=== PATIENT | male | born 1970 | race Caucasian/White ===

== ENCOUNTER 2020-08-18 07:46 | Outpatient (REF) | payer OTHER, SELFPAY ==
[2020-08-18 08:23] LABS: MANUAL DIFF FLAG NO
[2020-08-18 08:31] LABS: Basophils Percent Auto 0.4 % (0-2); Eosinophils Absolute Auto 0.3 X10*3/uL (0.0-0.4); Eosinophils Percent Auto 3.3 % (0-4); Hematocrit 38.5 % (42-52); Hemoglobin 12.7 g/dl (14.0-18.0); Imm Gran Abs Auto 0.04 X10*3/uL (0.00-0.03); Imm Gran Pct Auto 0.5 % (0.0-0.4); Lymphocytes Absolute Auto 1.4 X10*3/uL (1.2-4.9); Lymphocytes Percent Auto 17.9 % (20-40); Mean Corpuscular Hemoglobin 30.1 pg (27.0-33.0); Mean Corpuscular Volume 91.2 fL (80-98); Mean Platelet Volume 10.1 fL (9.4-12.4); Monocytes Absolute Auto 0.6 X10*3/uL (0.1-1.2); Monocytes Percent Auto 7.4 % (2-11); Neutrophils Absolute Auto 5.6 X10*3/uL (2.0-8.3); Neutrophils Percent Auto 70.5 % (45-73); Platelet Count 236 X10*3/uL (160-400); Red Blood Count 4.22 X10*6/uL (4.60-5.80); Red Cell Distribution Width 13.9 % (11.0-16.0)
[2020-08-18 08:57] LABS: Alanine Aminotransferase 27 U/L (0-40); Albumin Level 4.4 g/dL (3.5-5.0); Alkaline Phosphatase 74 U/L (39-117); Anion Gap 13 (12-20); Aspartate Amino Transferase 19 U/L (5-37); Bilirubin Total 0.3 mg/dL (0.0-1.0); Blood Urea Nitrogen 8 mg/dL (9-16); Calcium 9.5 mg/dL (8.4-10.2); Carbon Dioxide 27 mmol/L (22-29); Chloride 106 mmol/L (96-108); Cholesterol 157 mg/dL; Estimated Glomerular Filt Rate > 60; Glucose Fasting 113 mg/dL (60-99); HDL Cholesterol 54 mg/dL; LDL Cholesterol Calculated 93 mg/dl; Potassium 4.8 mmol/L (3.3-5.1); Sodium 141 mmol/L (135-145); Total Protein 7.3 g/dL (6.5-8.0); Triglycerides 52 mg/dL
[2020-08-19 07:59] LABS: Syphilis Screen Nonreactive (Nonreactive)
== END 2020-08-18 07:47 | disposition home or self-care (01) ==
LOC: HO.LAB 07:46
PROVIDERS: PCP Internal Medicine; Visit Provider Internal Medicine
DX: Z00.00 Encounter for general adult medical examination without abnormal findings (principal); E78.5 Hyperlipidemia, unspecified
CPT/HCPCS: 36415; 80053; 80061; 85025; 86780

== ENCOUNTER → 2021-05-27 14:46 | Outpatient (BNVA) | payer OTHER, SELFPAY | PROVIDERS: PCP Internal Medicine; Referring Provider Internal Medicine; Visit Provider Surgery ==

== ENCOUNTER 2021-08-06 10:26 | Day surgery (SDC) | payer OTHER, SELFPAY ==
[2021-07-28 13:02] VITALS: BMI 26.5
--- NOTE | 2021-08-05 08:39 | HO.ANESPROP2 ---
Documented by User: Cara Ferrer NP 08/05/21 08:41 HPI - Anesthesia Eval Consult details Narrative: 50yo M for Left Hernia Repair Inguinal with Mesh +ETOH (>6 beers daily) PMFSH Active Problems Active Problems: All Active Problems (Updated 07/28/21 @ 13:01 by Kristen Chun RN) Left inguinal hernia (Acute) Depression (Acute) Hypertension (Acute) Past Medical History Medical History (Updated 07/28/21 @ 13:01 by Kristen Chun RN) COVID-19 vaccine series completed Depression Excessive consumption of ethanol Family history of colon cancer Headache History of COVID-19 Hypertension Left inguinal hernia Surgical History Surgical History (Updated 07/28/21 @ 13:01 by Kristen Chun RN) H/O colonoscopy Hx of nasal septoplasty Social History Social History Are you a primary animal care worker to a significant other at home: No Do you presently have visiting nurse or other home services: No Patient Tobacco Use Status: Former Tobacco user Quit Date: age 32 Tobacco use type: Cigarette Use of substances other than those prescribed or required for medical reasons: Yes Substance Use Type Other:: advised to hold pre-op Substance Use Frequency: Daily Have you been hit, kicked, punched, or otherwise hurt by someone within the past year? If so, by whom?: No Are you DNR?: No Advance Directives: No Advance Directives Information Provided: Yes (brochure mailed) Advance Directives on File: No Eating poorly because of decreased appetite: No Nutrition Risks: No Nutritional Risk Poor oral hygiene: Yes (broken tooth upper Rt back/implant post upper front-no crown) Meds Allergies Allergy/AdvReac Type Severity Reaction Status Date / Time No Known Allergies Allergy Verified 08/06/21 10:46 Home Medications Medication Instructions Recorded Confirmed Last Taken Type atorvastatin 20 mg tablet 20 mg PO DAILY 05/27/21 07/28/21 Unknown History bupropion HCl 150 mg tablet,12 hr 150 mg PO DAILY 05/27/21 07/28/21 Unknown History sustained-release cyanocobalamin (vitamin B-12) 1,000 mcg IM 05/27/21 05/27/21 Unknown History 1,000 mcg/mL injection solution lamotrigine 25 mg tablet 25 mg PO DAILY 05/27/21 07/28/21 08/06/21 History metoprolol tartrate 25 mg tablet 25 mg PO BID 05/27/21 07/28/21 08/06/21 History omeprazole 20 mg capsule,delayed 20 mg PO DAILY 05/27/21 07/28/21 08/06/21 History release Exam Exam Date and Time: August 05, 2021 0839 Height,Weight and Vital Signs: Height 5 ft 10 in Weight 83.915 kg Assessment and Plan Assessment Anesthesia Assessment: Chart Reviewed Documented by User: Leesa Briones MD 08/06/21 12:12 [facility] Past Medical History Medical History (Updated 07/28/21 @ 13:01 by Kristen Chun RN) COVID-19 vaccine series completed Depression Excessive consumption of ethanol Family history of colon cancer Headache History of COVID-19 Hypertension Left inguinal hernia Family History Family history of problems with anesthesia: No Surgical History Surgical History (Updated 07/28/21 @ 13:01 by Kristen Chun RN) H/O colonoscopy Hx of nasal septoplasty History of Problems with Anesthesia: No Social History Social History Are you a primary animal care worker to a significant other at home: No Do you presently have visiting nurse or other home services: No Patient Tobacco Use Status: Former Tobacco user Quit Date: age 32 Tobacco use type: Cigarette Use of substances other than those prescribed or required for medical reasons: Yes Substance Use Type Other:: advised to hold pre-op Substance Use Frequency: Daily Have you been hit, kicked, punched, or otherwise hurt by someone within the past year? If so, by whom?: No Are you DNR?: No Advance Directives: No Advance Directives Information Provided: Yes (brochure mailed) Advance Directives on File: No Eating poorly because of decreased appetite: No Nutrition Risks: No Nutritional Risk Poor oral hygiene: Yes (broken tooth upper Rt back/implant post upper front-no crown) Meds Allergies Allergy/AdvReac Type Severity Reaction Status Date / Time No Known Allergies Allergy Verified 08/06/21 10:46 Home Medications Medication Instructions Recorded Confirmed Last Taken Type atorvastatin 20 mg tablet 20 mg PO DAILY 05/27/21 07/28/21 Unknown History bupropion HCl 150 mg tablet,12 hr 150 mg PO DAILY 05/27/21 07/28/21 Unknown History sustained-release cyanocobalamin (vitamin B-12) 1,000 mcg IM 05/27/21 05/27/21 Unknown History 1,000 mcg/mL injection solution lamotrigine 25 mg tablet 25 mg PO DAILY 05/27/21 07/28/21 08/06/21 History metoprolol tartrate 25 mg tablet 25 mg PO BID 05/27/21 07/28/21 08/06/21 History omeprazole 20 mg capsule,delayed 20 mg PO DAILY 05/27/21 07/28/21 08/06/21 History release Exam Airway Mallampati Class: I TM Dist: >3cm Neck ROM: Full Assessment and Plan Assessment Anesthesia Assessment: Anesthesia Plan Discussed and Chart Reviewed Final Anesthetic Review Family History of Problems with Anesthesia: No History of Problems with Anesthesia: No ASA Class: II Final Preanesthetic Review: No Changes in Pt Med Stat, Meds/Allgs Chart Reviewed, Consent Obtained/Reviewed and Anes Risks/Benef Reviewed Patient Risk: Intermediate Procedure Risk: Low Anesthetic Plan Anesthetic Plan: GA Disposition: Standard PACU
[2021-08-06] VITALS (9 sets, daily range): BP systolic 121–140; BP diastolic 65–92; PULSE 54–66; RESP 12–18; TEMP 36.6–37.2; O2SAT 96–99
[2021-08-06] MEDS: Lactated Ringers 1,000 ML 100 ML IVCONT (12:00)
--- NOTE | 2021-08-06 13:21 | P.OP_ITS ---
Operative Note Operative Note Date of Service: 08/06/21 Narrative: Preop diagnosis: Left inguinal hernia Postop diagnosis: Left inguinal hernia, direct Procedure: Repair of a left inguinal hernia with mesh Surgeon: Nilesh Reynolds MD chiropractic assistant: SHEYLA Stack The patient is a 50-year-old male with a reducible mass on the left groin also palpable with Valsalva. This was consistent with a left inguinal hernia. He understood the technique of repair with mesh. He was aware of the risks, benefits, and alternatives He was brought to the operating room. He was placed supine on the table under general anesthesia via laryngeal mask airway. The left groin was prepped and draped in the usual sterile fashion. A surgical time-out was done. The patient received cefazolin 2 g IV preoperatively . I infiltrated the planned line of incision with lidocaine 1%. I made a short incision on the skin along an imaginary line from the anterior superior iliac spine to the pubic ramus using a blade 15. This was carried down through the full-thickness of the skin and subcutaneous fat until was able to visualize the external oblique aponeurosis. I bluntly dissected the aponeurosis to define the external ring. I made an incision on the aponeurosis the external ring superior laterally to unroof the canal. Hemostats were applied on the edges of the divided aponeurosis. I bluntly dissected the underside of the aponeurosis to create a pocket for the mesh. I then proceeded to bluntly dissect the spermatic cord and its contents with an index finger until was able to pass a Shawn drain around this. The Redrock drain was used for traction The vas deferens and the accompanying vessels were clearly seen. The hernia sac was noted to be on the floor of the canal. This was therefore a direct hernia. This was completely from the rest of the cord contents. I reinforced the defect on the floor with a medium-sized plug. The plug was secured with Prolene 2 sutures to the shelving edge of the inguinal and laterally, inferior oblique medially and superiorly using the inner leaves of the mesh. I then proceeded to reinforce the rest of the floor of the canal with a keyhole mesh. The tails of the mesh were passed around the cord at the level of the internal ring and were secured together with Prolene 2 sutures The keyhole mesh was then secured to the against of the inguinal and laterally and the internal oblique superiorly as well as medially and the pubic ramus inferomedially with Prolene 2 sutures. We observed for hemostasis. He once hemostasis ensured, I removed the Shawn drain. I proceeded to then reapposed the divided edges of the external oblique aponeurosis to re-create the external ring. The subcutaneous layer was reapposed with Dexon 3-0 interrupted sutures. Skin closure was achieved with Dexon 4-0 subcuticular running stitch. Steri- Strips dressings were applied And dressings were placed. The incision was infiltrated with Marcaine 0.5% for postop analgesia. The procedure was then completed. The patient tolerated procedure well. There were no complications noted. Initial and final counts of sponges and instruments were correct. Estimated blood loss was about 5 cc. The was extubated without difficulty and transferred to the recovery room with stable vital signs.
[2021-08-06] MEDS: fentaNYL citrate/PF 100 MCG/2 ML VIAL 50 MCG IVPUSH ×3 (13:45→14:05)
[2021-08-06] MEDS: oxyCODONE HCl Immed Release 5 MG TABLET PO (13:49)
== END 2021-08-06 15:33 | disposition home or self-care (01) ==
PROVIDERS: PCP Internal Medicine; Visit Provider Surgery
PROC: (CPT 49505; principal; 2021-08-06 12:40)
DX: K40.90 Unilateral inguinal hernia, without obstruction or gangrene, not specified as recurrent (principal); I10 Essential (primary) hypertension; F32.9 Major depressive disorder, single episode, unspecified; Z79.899 Other long term (current) drug therapy; Z79.52 Long term (current) use of systemic steroids; Z80.0 Family history of malignant neoplasm of digestive organs; Z86.16 Personal history of COVID-19; Z87.891 Personal history of nicotine dependence
CPT/HCPCS: 49505; C1781; J0690; J1100; J2250; J2405; J3010

== ENCOUNTER → 2021-08-18 10:32 | Outpatient (BNVA) | payer OTHER, SELFPAY | PROVIDERS: PCP Internal Medicine; Visit Provider Surgery ==

== ENCOUNTER 2022-11-29 10:30 | Day surgery (SDC) | payer OTHER, SELFPAY ==
--- NOTE | 2022-11-28 12:12 | P.CONAN_ITS ---
HPI - Anesthesia Eval Consult details Narrative: 52yo M for Colonoscopy ETOH daily: >6 beers daily per PMHx PMFSH Active Problems Active Problems: All Active Problems (Updated 07/28/21 @ 13:01 by Kristen Chun RN) Left inguinal hernia (Acute) Depression (Acute) Hypertension (Acute) Past Medical History Medical History COVID-19 vaccine series completed Depression Excessive consumption of ethanol Family history of colon cancer Headache History of COVID-19 Hypertension Left inguinal hernia Family History Family history of problems with anesthesia: No Surgical History Surgical History H/O colonoscopy History of left inguinal hernia repair (~08/06/21) Hx of nasal septoplasty History of Problems with Anesthesia: No Social History Social History Are you a primary hemodialysis patient care specialist to a significant other at home: No Do you presently have visiting nurse or other home services: No Patient Tobacco Use Status: Former Tobacco user Quit Date: age 32 Tobacco use type: Cigarette Meds Allergies Allergy/AdvReac Type Severity Reaction Status Date / Time No Known Allergies Allergy Verified 08/18/21 10:33 Home Medications Medication Instructions Recorded Confirmed Last Taken Type atorvastatin 20 mg tablet 20 mg PO DAILY 05/27/21 07/28/21 Unknown History bupropion HCl 150 mg tablet,12 hr 150 mg PO DAILY 05/27/21 07/28/21 Unknown History sustained-release cyanocobalamin (vitamin B-12) 1,000 mcg IM 05/27/21 05/27/21 Unknown History 1,000 mcg/mL injection solution lamotrigine 25 mg tablet 25 mg PO DAILY 05/27/21 07/28/21 08/06/21 History metoprolol tartrate 25 mg tablet 25 mg PO BID 05/27/21 07/28/21 08/06/21 History omeprazole 20 mg capsule,delayed 20 mg PO DAILY 05/27/21 07/28/21 08/06/21 History release Exam Exam Date and Time: November 28, 2022 121 Assessment and Plan Assessment Anesthesia Assessment: Chart Reviewed Final Anesthetic Review Family History of Problems with Anesthesia: No History of Problems with Anesthesia: No
[2022-11-29 11:34] VITALS: BP 154/93; PULSE 53; RESP 18; TEMP 36.2; O2SAT 99; BMI 26.2
[2022-11-29] MEDS: Lactated Ringers 1,000 ML 100 ML IVCONT (11:52)
--- NOTE | 2022-11-29 12:16 | MHC.SHP ---
Pre-Procedural Eval Section A Date of Service: 11/29/22 The patient is an INPATIENT: No Changes since office visit: No Cold of Flu in the past 2 weeks, No New Medical Problems, No Changes in Medication and No Patient answered all questions The History & Physical has been completed within 30 days and I have reviewed it.: Yes Section B Chief Complaint: screening Allergies: Allergies Allergy/AdvReac Type Severity Reaction Status Date / Time No Known Allergies Allergy Verified 08/18/21 10:33 Plan I have reviewed the history and physical and performed a pertinent physical examination on my patient. No changes have occurred unless specified. Time Spent With Patient Time: Total time managing care of this patient today ____ minutes.
--- NOTE | 2022-11-29 12:31 | P.CONAN_ITS ---
[facility] Active Problems Active Problems: All Active Problems (Updated 07/28/21 @ 13:01 by Kristen Chun RN) Left inguinal hernia (Acute) Depression (Acute) Hypertension (Acute) Past Medical History Medical History COVID-19 vaccine series completed Depression Excessive consumption of ethanol Family history of colon cancer Headache History of COVID-19 Hypertension Left inguinal hernia Family History Family history of problems with anesthesia: No Surgical History Surgical History H/O colonoscopy History of left inguinal hernia repair (~08/06/21) Hx of nasal septoplasty History of Problems with Anesthesia: No Social History Social History Are you a primary home health aide caregiver to a significant other at home: No Do you presently have visiting nurse or other home services: No Patient Tobacco Use Status: Former Tobacco user Quit Date: 20 years Tobacco use type: Cigarette Use of substances other than those prescribed or required for medical reasons: Yes Are you DNR?: No Advance Directives: No Advance Directives Information Provided: Yes Meds Allergies Allergy/AdvReac Type Severity Reaction Status Date / Time No Known Allergies Allergy Verified 08/18/21 10:33 Active Medications: Current Medications Lactated Ringer's (Lr) 1,000 mls @ 100 mls/hr IVCONT .Q10H CORRINA Last Admin: 11/29/22 11:52 Dose: 100 mls/hr Home Medications Medication Instructions Recorded Confirmed Last Taken Type atorvastatin 20 mg tablet 20 mg PO DAILY 05/27/21 11/29/22 Unknown History bupropion HCl 150 mg tablet,12 hr 150 mg PO DAILY 05/27/21 11/29/22 Unknown History sustained-release cyanocobalamin (vitamin B-12) 1,000 mcg IM Q30D 05/27/21 05/27/21 11/22/22 History 1,000 mcg/mL injection solution lamotrigine 25 mg tablet 25 mg PO DAILY 05/27/21 11/29/22 08/06/21 History metoprolol tartrate 25 mg tablet 25 mg PO BID 05/27/21 11/29/22 11/29/22 History omeprazole 20 mg capsule,delayed 20 mg PO DAILY 05/27/21 11/29/22 08/06/21 History release Exam Exam Date and Time: November 29, 2022 1231 Height,Weight and Vital Signs: Height 5 ft 10.5 in Weight 83.915 kg Last Vital Signs Temp 97.1 F 11/29/22 11:34 Pulse 53 11/29/22 11:34 Resp 18 11/29/22 11:34 BP 154/93 H 11/29/22 11:34 Pulse Ox 99 11/29/22 11:34 O2 Del Method Room Air 11/29/22 11:34 Airway Mallampati Class: II TM Dist: >3cm Neck ROM: Full Heart: RRR Lungs: CTA Assessment and Plan Final Anesthetic Review Family History of Problems with Anesthesia: No History of Problems with Anesthesia: No ASA Class: II Final Preanesthetic Review: Meds/Allgs Chart Reviewed, Consent Obtained/Reviewed and Anes Risks/Benef Reviewed Patient Risk: Low Procedure Risk: Low Anesthetic Plan Anesthetic Plan: MAC: Disposition: Standard PACU
--- NOTE | 2022-11-29 12:48 | P.BOP_ITS ---
Brief Operative Note Date of Service: 11/29/22 Pre-op diagnosis: screening Post-op diagnosis: same Procedure: colonoscopy Surgeon: Adalberto Vides Anesthesia: MAC Was an Returned Goods Repairer used for this Procedure?: No Estimated blood loss (mL): 5 Pathology: other Condition: stable Disposition: PACU
[2022-11-29 12:52] VITALS: BP 120/75; PULSE 62; RESP 16; TEMP 36.1; O2SAT 99
[2022-11-29 13:07] VITALS: BP 127/96; PULSE 59; RESP 16; TEMP 36.1; O2SAT 99
--- NOTE | 2022-11-29 13:11 | OP_ITS ---
DATE OF SERVICE: 10/29/2022 SURGEON: Adalberto Vides MD INDICATIONS: Colon cancer screening. PREOPERATIVE DIAGNOSIS: POSTOPERATIVE DIAGNOSIS: PROCEDURE PERFORMED: Colonoscopy to the terminal ileum with biopsy. ESTIMATED BLOOD LOSS: COMPLICATIONS: ANESTHESIA: Monitored anesthesia care. ASSISTANTS: SPECIMENS: DESCRIPTION OF PROCEDURE: A history and physical was performed. The risks and benefits of the procedure were explained to the patient. Informed consent was obtained. The patient was placed in the left lateral decubitus position. A digital rectal exam was performed and was found to be normal. The Olympus pediatric video colonoscope was introduced into the rectum and advanced to the cecum. The cecum was identified by transillumination, palpation, and identification of ileocecal valve. Examination was performed. The scope was removed. He tolerated the procedure well and was returned to the recovery area in stable condition. FINDINGS: The terminal ileum was normal. The visualized colonic mucosa was normal. The quality of the prep was good. There was a small polyp, which was removed with a biopsy forceps at 35 cm from the anal verge. No other polyps were identified. 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 Biopsies were obtained from the mucosa. There was mild sigmoid diverticulosis. IMPRESSION: Colon polyp. RECOMMENDATION: Follow up the biopsy results. MD KIMI Thomas/MODL / [id number]
== END 2022-11-29 13:55 | disposition home or self-care (01) ==
PROVIDERS: PCP Internal Medicine; Visit Provider Internal Medicine Gastroenterology
PROC: 0DJD8ZZ Inspection of Lower Intestinal Tract, Via Natural or Artificial Opening Endoscopic (ICD-10-PCS; CPT 45378; principal; 2022-11-29 11:40)
DX: Z12.11 Encounter for screening for malignant neoplasm of colon (principal); Z86.010 Personal history of colon polyps; Z80.0 Family history of malignant neoplasm of digestive organs; D12.5 Benign neoplasm of sigmoid colon; K62.82 Dysplasia of anus; K57.30 Diverticulosis of large intestine without perforation or abscess without bleeding; K21.9 Gastro-esophageal reflux disease without esophagitis; I10 Essential (primary) hypertension; E78.00 Pure hypercholesterolemia, unspecified; F41.1 Generalized anxiety disorder; Z79.899 Other long term (current) drug therapy; Z87.891 Personal history of nicotine dependence
CPT/HCPCS: 45380; 88305

== ENCOUNTER 2023-11-07 14:15 | Outpatient (AMB) | payer OTHER, SELFPAY ==
--- NOTE | 2023-11-07 14:28 | A.OFFVIS_ITS ---
Intake Visit Reasons: peyronies disease Intake Note: NEW Patient presents today to established treatment for Peyronies Disease: Meds- None Allergies to Antibiotic- No Known Allergies Blood Thinner- None Account Manager Relief Required: No Accompanied by: Self / Same As Patient Allergies No Known Allergies Allergy (Verified 11/07/23 14:29) Medication List - Last Reconciled 11/07/23 by Henrique Ventura MD atorvastatin 20 mg PO DAILY bupropion HCl SR 150 mg PO DAILY cyanocobalamin (vitamin B-12) 1,000 mcg IM Q30D lamotrigine 25 mg PO DAILY metoprolol tartrate 25 mg PO BID omeprazole 20 mg PO DAILY HPI Comments Details: Go is a pleasant male. He is a patient of Dr. Yost. He seen for the following urologic conditions - Peyronie's disease Peyronie's disease Progressive mild curvature does not interfere with ability to have intercourse Discussed various treatments including conservative therapy with oral medications versus penile plication Would like to try oral medications PFSH Medical History COVID-19 vaccine series completed Depression Excessive consumption of ethanol Family history of colon cancer Headache History of COVID-19 Hypertension Left inguinal hernia Surgical History H/O colonoscopy History of left inguinal hernia repair (~08/06/21) Hx of nasal septoplasty Social History Are you a primary lpn care manager to a significant other at home: No Do you presently have visiting nurse or other home services: No Patient Tobacco Use Status: Former Tobacco user Tobacco use type: Cigarette Review of Systems Const Denies chills and Denies fever(s) Card Reports no additional complaints and Denies syncope Resp Denies cough GI Denies abdominal pain and Denies heartburn Reports as per HPI and Denies change in libido Neuro Denies syncope Psych Denies change in libido Endo Denies change in libido Physical Exam Const General: cooperative, healthy appearing, comfortable and no acute distress Orientation/consciousness: patient oriented x3 HEENT Face and sinus: Yes normal facial exam Mouth: moist mucous membranes Neck Neck: Yes normal visual inspection, Yes full ROM and Yes trachea midline Chest Chest palpation & inspection: normal inspection of the chest Resp Effort & Inspection: normal respiratory effort, able to speak in complete sentences and no respiratory distress GI Inspection: Yes normal to inspection Back/Spine/Pelvis Cervical Spine: normal cervical lordosis Thoracic/Lumbar Spine: thoracic and lumbar spine normal to inspection Skin General skin exam: no rashes or lesions noted Neuro General: patient oriented x3, gait normal, tone normal and moves all extremities Extrem General: Yes normal to inspection and Yes capillary refill normal Assessment & Plan Assessment & Plan (1) Peyronie's disease: Code(s): N48.6 - Induration penis plastica Category: Medical Plan Penile Doppler Oral medications Orders: Orders US penile 11/07/23 N48.6 - Induration penis plastica Patient Instructions: Imaging studies, laboratory and physical exam results were discussed and reviewed in detail. No major barriers to patient understanding were identified. An opportunity to ask questions regarding the treatment plan was provided. All questions were answered. The patient expressed understanding and agreement with the above treatment plan. The patient is aware they should contact our office by phone for worsening of their current condition or the appearance of new urologic symptoms. Compliance is encouraged with any medications and followup testing that is ordered. It is a privilege to participate in the urologic care of your patient. If you have any questions or concerns regarding treatment for the above conditions, or other urologic issues, please do not hesitate to contact me. The office telephone contact is [phone]. This note is constructed using voice recognition software. While every effort has been made to ensure accuracy professor of kinesiology errors may have been included. Yours sincerely, Dr Henrique Ventura MD, [facility] - Urology Providers of Expert, Compassionate Care for the Genitourinary System Coding Level of Care Code New Pt Level 4 (85173) Diagnoses Peyronie's disease N48.6
== END 2023-11-07 14:51 | disposition home or self-care (01) ==
PROVIDERS: PCP Internal Medicine; Visit Provider Urology
DX: N48.6 Induration penis plastica (principal)
CPT/HCPCS: 99204

== ENCOUNTER → 2023-11-07 14:15 | Outpatient (BNVA) | payer OTHER, SELFPAY | PROVIDERS: PCP Internal Medicine; Visit Provider Urology ==

== ENCOUNTER 2024-02-20 16:13 | Outpatient (REF) | payer OTHER, SELFPAY ==
--- NOTE | ~2024-02-20 | CT_ITS ---
EXAMINATION CT HEAD WITHOUT CONTRAST CLINICAL INFORMATION: Headache behind right eye COMPARISON: None TECHNIQUE: CT of the head was performed without intravenous contrast. Reformatted axial, coronal, and sagittal images were reviewed. This CT examination was performed using dose optimization techniques as appropriate, variously including the following: *Automated exposure control *Adjustment of mA and/or kV according to patient size (this includes techniques or standardized protocols for targeted exams where dose is matched to indication/reason for exam; i.e. extremities or head) *Use of iterative reconstruction technique DLP: 628 mGy-cm FINDINGS: No intracranial hemorrhage, extra-axial fluid collection, or midline shift is identified. Thmopson-white matter differentiation is preserved. The ventricles are within normal limits. Basal cisterns are within normal limits. Paranasal sinuses are clear. Mastoid air cells and middle ear cavities are clear. No acute calvarial fractures. CT/CT head/brain wo IV con IMPRESSION: No intracranial abnormality. Electronically signed by: Jarocho Phan DO 02/21/2024 04:54 PM EDT
== END 2024-02-20 16:14 | disposition home or self-care (01) ==
LOC: HO.CT 16:13
PROVIDERS: PCP Internal Medicine; Visit Provider Internal Medicine
DX: R51.9 Headache, unspecified (principal)
CPT/HCPCS: 70450

== ENCOUNTER 2024-03-28 16:20 | Outpatient (REF) | payer OTHER, SELFPAY ==
--- NOTE | ~2024-03-28 | XR_ITS ---
EXAMINATION: XR CERVICAL SPINE CLINICAL INFORMATION: Neck pain. COMPARISON: None available. TECHNIQUE: 6 views of the cervical spine, inclusive of flexion and extension views, were obtained. FINDINGS: The submitted for interpretation on April 23, 2024. Craniocervical junction is intact. Multilevel marginal osteophyte formation, subchondral cyst formation, decreased intervertebral disc height C4 C7. Grade 1 anterolisthesis C3-4. Grade 1 retrolisthesis C4-5 and C5-6 levels. Bilateral neuroforamina narrowing at C3-4, C4-5 and C5-6 levels. No lytic or blastic lesions. XR/XR cervical spine 5V IMPRESSION: Multilevel cervical spondylosis C3 C7 resulting in grade 1 anterolisthesis C3-4 and grade 1 retrolisthesis C4-5 and C5-6. Recommend further imaging evaluation with non-IV contrast MRI cervical spine. Electronically signed by: Wong Hylton MD 04/23/2024 03:47 PM EST
--- NOTE | ~2024-03-28 | XR_ITS ---
EXAMINATION: XR THORACIC SPINE CLINICAL INFORMATION: Neck pain. COMPARISON: None available TECHNIQUE: 2 views, 4 images of the thoracic spine were obtained. FINDINGS: There is no fracture or bone destruction seen and the vertebral alignment is normal. There is no disc space narrowing. Small multilevel endplate osteophytes throughout the thoracic spine. There is no abnormality of the paraspinal soft tissues. XR/XR thoracic spine 3V IMPRESSION: Mild degenerative changes throughout the thoracic spine. Electronically signed by: Nate Mota MD 05/22/2024 08:22 AM ANUEL
== END 2024-03-28 16:21 | disposition home or self-care (01) ==
LOC: HO.XRAY 16:20
PROVIDERS: PCP Internal Medicine; Visit Provider Internal Medicine
DX: M54.2 Cervicalgia (principal); M54.6 Pain in thoracic spine
CPT/HCPCS: 72050; 72072

== ENCOUNTER → 2024-03-28 16:23 | Outpatient (BNV) | payer OTHER, SELFPAY | PROVIDERS: PCP Internal Medicine; Visit Provider Radiology Diagnostic Radiology | DX: M54.2 Cervicalgia (principal) | CPT/HCPCS: 72050 ==

== ENCOUNTER 2024-06-17 16:33 | Outpatient (REF) | payer OTHER, SELFPAY ==
--- NOTE | ~2024-06-17 | MR_ITS ---
EXAMINATION: MR CERVICAL SPINE WITHOUT IV CONTRAST History: MULTILEVEL SPONDYLOSIS Technique: Sagittal T1, T2 and STIR, and axial T2 weighted and gradient echo images of the cervical spine were obtained per departmental protocol. Comparison: Correlation is made with plain films of the cervical spine dated 03/28/2024. Findings: The vertebral bodies maintain normal height. There is reversal of the normal cervical lordosis with slight anterolisthesis of C3 C3 on C4. There is moderate to severe degenerative disc disease at the C3-4, C4-5, C5-6, C6-7 levels with disc desiccation, loss of disc height, posterior spurring, and endplate changes. Bone marrow signal intensity is otherwise normal. At C2-3, there is no evidence of disc herniation, central spinal stenosis, or neural foraminal narrowing. At C3-4, there is a posterior disc/osteophyte complex and slight anterolisthesis. There is uncovertebral joint hypertrophy bilaterally and right-sided facet osteoarthritis. These findings cause severe central spinal stenosis and bilateral neural foraminal narrowing. At C4-5, there is a posterior disc/osteophyte complex which is asymmetric to the left. There is uncovertebral joint hypertrophy. These findings cause moderate central spinal stenosis and bilateral neural foraminal narrowing. At C5-6, there is a posterior disc/osteophyte complex causing moderate central spinal stenosis. There is uncovertebral joint hypertrophy causing bilateral neural foraminal narrowing. At C6-7, there is a posterior disc/osteophyte complex which is slightly asymmetric to the right. There is uncovertebral joint hypertrophy causing bilateral neural foraminal stenosis. No significant central spinal stenosis. At C7-T1, there is no evidence of disc herniation, central spinal stenosis, or neural foraminal narrowing. The spinal cord demonstrates normal signal intensity. The visualized paraspinal soft tissues are unremarkable. MR/MR cervical spine wo con Impression: Moderate to severe degenerative disc disease causing multilevel central spinal and neural foraminal stenosis as described above. Electronically signed by: Binh Lopez MD 06/18/2024 07:57 AM [facility]
--- OUTSIDE RECORDS SUMMARY | 2024-06-17 17:40 | XMS_ITS | Patient Health Record ---
Author Organization [facility] Address [address] [place] [id number] Care Team Providers Care Supervisor Poultry Hatchery Name Role Phone Lionel Yost MD Primary Care Provider Unavailab Adalberto Rodriguez Jr Unavailable [phone] ALLERGIES No Known Allergies REASON FOR REFERRAL No Information MEDICATIONS Medication SIG (Take, Route, Frequency, Duration) Notes Start Date End Date Status Vitamin B 12 500 MCG 1 lozenge Orally On ce a day for 30 day(s) injection Active Atorvastatin Calcium 20 MG 1 tablet Oral ly Once a day for 30 day(s) Active MiraLax (colon prep) 17 GM/SCOOP mixed with Gatorade or Crystal Light Orally begin at 5:00 p.m. the day before the procedure for 1 day 11/14/2022 Active lamoTRIgine 25 MG Oral for 30 Active Metoprolol Tartrate 25 MG Oral for 30 Active buPROPion HCl ER (SR) 150 MG Oral for 30 Active Triamcinolone Acetonide 0.1 % External for 30 Active Omeprazole 20 MG 1 capsule Orally Onc e a day Active IMMUNIZATIONS Vaccine Route Administration Date Status Comme nts Influenza Unknown 05/02/2022 Administered SOCIAL HISTORY Sex Assigned At : Social History Observation Description Sex Assigned At Unknown Alcohol Screen Question Answer Notes Did you have a drink contain ing alcohol in the past year? Yes How often did you have a dri nk containing alcohol in the past year? 4 or more times a week (4 points) How many drinks did you have on a typical day when you were drinking in the past year? 10 or more drinks (4 points) How often did you have 6 or more drinks on one occasion in the past year? Daily or almost daily (4 points) Points 12 Interpretation Positive PROBLEMS Problem Type ICD Code Onset Dates Problem Status W/U Status Risk SNOMED Code Notes Problem Colon cancer screening (Z12.11) Active confirmed 912602705 Problem Gastroesophageal reflux disease without esophagitis (K21.9) Active confirmed 557803163 Problem Family history of colon cancer (Z80.0) Active confirmed 369827831 PLAN OF TREATMENT Future Test Test Name Order Date COLONOSCOPY 08/27/2014 COLONOSCOPY 11/14/2022 Insurance Providers Payer Name Payer Address Payer Phone Subscriber Number Group Number Insured Name Patient Relationship to Insured Coverage Start Date Coverage End Date [facility] [address] [place] [address] [phone] [id number] NALINI MEJIA Self - patient is the insured MEDICAL (GENERAL) HISTORY Medical History History ICD Code Left inguinal herniorrhaphy Colonoscopy 10/23/14, sessile serrated ad enoma and anal condyloma Gastroesophageal reflux disease Elevated cholesterol Anxiety Hypertension Surgical History Surgery Date(Month/Year) hand surgery nose surgery hernia surgery 10/01
== END 2024-06-17 16:34 | disposition home or self-care (01) ==
LOC: HO.MRI 16:33
PROVIDERS: PCP Internal Medicine; Visit Provider Internal Medicine
DX: M50.20 Other cervical disc displacement, unspecified cervical region (principal)
CPT/HCPCS: 72141

== ENCOUNTER → 2024-06-17 16:50 | Outpatient (BNV) | payer OTHER, SELFPAY | PROVIDERS: PCP Internal Medicine; Visit Provider Radiology Diagnostic Radiology | DX: M47.9 Spondylosis, unspecified (principal) | CPT/HCPCS: 72141 ==

== ENCOUNTER 2025-02-26 14:18 | Outpatient (AMB) | payer OTHER, SELFPAY ==
--- NOTE | 2025-02-26 14:21 | MHC.PC.OV ---
Vital Signs 02/26/25 14:25 Height 5 ft 8.9 in Weight 186 lb BMI 27.5 BP 134/75 Blood Pressure Location Lt brachial Position Sitting Respiration 14 Pulse 56 Pulse Source Pulse Oximeter Temp 97.7 F Temp Source Temporal Artery Scan Pulse Oximetry (%) 98 Oxygen Delivery Method Room Air Intake Visit Reasons: [facility] / Dr. Yost Feed House Supervisor Required: No Accompanied by: Self / Same As Patient Allergies No Known Allergies Allergy (Verified 02/26/25 14:42) Medication List - Last Reconciled 02/26/25 by Carin Jimenez PA-C atorvastatin 20 mg PO DAILY bupropion HCl SR 150 mg PO DAILY cyanocobalamin (vitamin B-12) 1,000 mcg IM Q30D lamotrigine 200 mg PO BID losartan 50 mg PO DAILY metoprolol succinate ER 50 mg PO DAILY naproxen 500 mg PO BID omeprazole 20 mg PO DAILY triamcinolone acetonide 0.1% 1 appl topical BID-TID Tobacco use date assessed: 02/26/25 Dental Screening Dental Screen Date: 02/26/25 Did you have a dental visit in the last 12 months?: Yes Did you have a dental problem in the last 6 months where you did not have access to dental care?: No Was dental information given to patient?: Patient has dentist HPI Porter Anderson / Dr. Yost HPI Details The patient is a 54-year-old male presenting for the establishment of care and medication review. The patient has a history of cardiac arrhythmias, which have been noted in the past. He is currently on metoprolol extended release 50 mg, which has maintained his blood pressure at 134/75 mmHg. The patient has been diagnosed with bipolar disorder, which was identified by a neurologist following severe headaches. He experiences severe stabbing headaches behind his right eye, which were initially managed with lamotrigine 100 mg, but due to recurrence, the dosage was increased to 200 mg. The patient is on atorvastatin 20 mg for cholesterol management, and his previous blood work indicated normal cholesterol levels. He also takes bupropion 150 mg, vitamin B12 injections monthly, losartan 50 mg for hypertension, naproxen 500 mg for neck pain, and omeprazole 20 mg for acid reflux. He has a history of a fungal skin infection, for which he uses triamcinolone cream, which has alleviated itching and dryness. The patient underwent a colonoscopy in [address] Vides and is on a five-year follow-up plan. Social history - Housing: Lives with a male friend as a roommate. - Functional status: Able to take care of himself, no recent falls, does not use a walker or cane, and is able to drive. [facility] Medical History (Updated 02/26/25 @ 16:18 by Carin Jimenez PA-C) Preventative health care Fungal skin infection GERD (gastroesophageal reflux disease) Severe headache Bipolar disorder, unspecified Cardiac arrhythmia Vitamin B 12 deficiency Excessive consumption of ethanol COVID-19 vaccine series completed Headache History of COVID-19 Family history of colon cancer Left inguinal hernia Depression Hypertension Surgical History History of left inguinal hernia repair (~08/06/21) Hx of nasal septoplasty H/O colonoscopy (~11/29/22) Family History Father Diabetes BP (high blood pressure) Mother Breast cancer Low BP Social History Housing: House Are you a primary healthcare representative to a significant other at home: No Do you presently have visiting nurse or other home services: No Alcohol intake: current Alcohol intake frequency: 3 or more drinks per day Patient Tobacco Use Status: Former Tobacco user Tobacco use type: Cigarette service: No Current occupational status: employed Cognitive needs: No Hearing needs: No Vision needs: Yes (rx glasses) Questionnaire PHQ-9 Over the last 2 weeks, how often have you been bothered by any of the following problems? 1. Little interest or pleasure in doing things: not at all 2. Feeling down, depressed, or hopeless: not at all 3. Trouble falling or staying asleep, or sleeping too much: not at all 4. Feeling tired or having little energy: not at all 5. Poor appetite or overeating: not at all 6. Feeling bad about yourself - or that you are a failure or have let yourself or your family down: not at all 7. Trouble concentrating on things, such as reading the newspaper or watching television: not at all 8. Moving or speaking so slowly that other people could have noticed. Or the opposite - being so fidgety or restless that you have been moving around a lot more than usual: not at all 9. Thoughts that you would be better off or of hurting yourself in some way: not at all Total score: 0 Depression Screening Interpretation: Negative Depression Screening Done: Yes 40318 - PHQ-9 Billing: Yes Source: Developed by Drs. Binh Hassan, Jessy Posey, Tay Hamlin and colleagues, with an educational sasha from [employer]. AUDIT C Alcohol Use Questionnaire (AUDIT-C) 1. How often do you have a drink containing alcohol?: 4 or more times a week 2. How many drinks containing alcohol do you have on a typical day when you are drinking?: 1 or 2 3. How often do you have six or more drinks on one occasion?: Never Total Score: 4 Score Reviewed/Action Taken: No ROMMEL-7 AMB Questionnaire ROMMEL-7 Date ROMMEL - 7 assessed: 02/26/25 Feeling nervous, anxious, or on edge: 0 = Not at all Not being able to stop or control worryin = Not at all Worrying too much about different things: 0 = Not at all Trouble relaxin = Not at all Being so restless that it is hard to sit still: 0 = Not at all Becoming easily annoyed or irritable: 0 = Not at all Feeling afraid as if something awful might happen: 0 = Not at all Total ROMMEL-7 score (0-4 normal; 5-9 mild; 10-14 moderate; 15-21 severe): 0 Source: Developed by Drs. Binh Hassan, Jessy Posey, Tay Hamlin and colleagues, with an educational sasha from [employer]. ROMMEL-7 Assessment Billing ROMMEL-7 Assessment Tool: ROMMEL-7 Assessment 38902 Review of Systems Const Details: - Cardiovascular: Denies chest pain, orthopnea, or syncope. - Gastrointestinal: Denies black or bloody stools, unintentional weight loss, or abdominal pain. - Genitourinary: Denies dysuria or hematuria. All systems reviewed & are unremarkable except as noted in HPI and below Physical exam (Primary Care) Vital Signs: Last Vital Signs Temp 97.7 F 02/26/25 14:25 Pulse 56 02/26/25 14:25 Resp 14 02/26/25 14:25 BP 134/75 02/26/25 14:25 Pulse Ox 98 02/26/25 14:25 Oxygen Delivery Method Room Air 02/26/25 14:25 Care Plan Goal for BP management: <140/90 at Goal BMI result Body Mass Index 27.5 BMI Assessment/Plan discussion: High BMI High, discussed plan: lifestyle, weight reduction, dietary, physical activity, alcohol moderation and other Tobacco/Smoking Status: Tobacco use Status Tobacco use date assessed 02/26/25 02/26/25 14:34 Patient Tobacco Use Status Former Tobacco user 02/26/25 14:34 Tobacco use type Cigarette 02/26/25 14:34 PHQ-9: PHQ-9 Score PHQ-9: Total score 0 02/26/25 14:42 Depression Screening Interpretation: Negative Const Other: Appearance: Alert. Oriented X3. No acute distress. Head: Normal external exam. Normocephalic. Atraumatic. Eyes: Pupils are equal, round, and reactive to light. Extraocular movements intact. Conjunctiva and sclera normal. Eyelids normal. Ears: External auditory canal normal. Tympanic membranes normal. Throat: Pharynx normal. Uvula midline. Moist mucous membranes. Neck: Normal inspection. Neck supple. Full range of motion. Cardiovascular: Normal heart rate and rhythm. Heart sound normal. No murmurs noted. Pulses normal throughout. Respiratory: No respiratory distress. Painless inspiration. Breath sounds normal. No wheezes/rales/rhonchi noted. Chest nontender. No accessory muscle usage noted or decreased air movement noted. Abdomen: Soft and nontender. Bowel sounds normal in all 4 quadrants. No distention noted. No organomegaly noted. No visible injury noted. Back: No costovertebral angle tenderness. Full range of motion noted. Skin: Skin warm and dry. Normal skin color. Normal skin turgor. No rashes/lesions/lacerations noted. Extremities: No lower extremity edema. Extremities exhibit normal range of motion. Neuro: Oriented X 3. No motor deficit. No sensory deficit. Reflexes normal. Results Reviewed Results Reviewed: - Labs: Previous blood work indicated normal cholesterol and white blood cell count. Coding Level of Care Code New Pt Level 4 (24673) Complex EM visit Add On G2211 Diagnoses Cardiac arrhythmia I49.9 Bipolar disorder, unspecified F31.9 Severe headache R51.9 Hypertension I10 GERD (gastroesophageal reflux disease) K21.9 Fungal skin infection B36.9 Preventative health care Z00.00 Additional Codes ROMMEL-7 Assessment Billing - ROMMEL-7 Assessment Tool: ROMMEL-7 Assessment 38599 ([id number]) PHQ-9 - 98876 - PHQ-9 Billing: Yes ([id number]) Assessment & Plan Assessment & Plan (1) Cardiac arrhythmia: Code(s): I49.9 - Cardiac arrhythmia, unspecified Category: Medical Plan: The patient has a history of cardiac arrhythmias and is currently managed with metoprolol extended release 50 mg, which has effectively maintained his blood pressure at 134/75 mmHg. (2) Bipolar disorder, unspecified: Code(s): F31.9 - Bipolar disorder, unspecified Category: Medical Plan: The patient is diagnosed with bipolar disorder, managed with lamotrigine 200 mg daily, which was increased from 100 mg due to recurrence of severe headaches. (3) Severe headache: Code(s): R51.9 - Headache, unspecified Category: Medical Plan: The patient experiences severe stabbing headaches behind the right eye, managed with lamotrigine 200 mg daily. (4) Hypertension: Code(s): I10 - Essential (primary) hypertension Category: Medical Plan: The patient is on losartan 50 mg and metoprolol extended release 50 mg, which have effectively controlled his blood pressure. (5) GERD (gastroesophageal reflux disease): Code(s): K21.9 - Gastro-esophageal reflux disease without esophagitis Category: Medical Plan: The patient is managed with omeprazole 20 mg for acid reflux symptoms. (6) Fungal skin infection: Code(s): B36.9 - Superficial mycosis, unspecified Category: Medical Plan: The patient uses triamcinolone cream for a fungal skin infection, which has alleviated itching and dryness. (7) Preventative health care: Code(s): Z00.00 - Encounter for general adult medical examination without abnormal findings Category: Medical Plan: The patient underwent a colonoscopy in 2022 and is on a five-year follow-up plan. Plan Plan Patient was informed and verbally consented to the use of an ambient scribe for clinic note documentation during this visit. 1. Cardiac Arrhythmias The patient has a history of cardiac arrhythmias and is currently managed with metoprolol extended release 50 mg, which has effectively maintained his blood pressure at 134/75 mmHg. 2. Bipolar Disorder The patient is diagnosed with bipolar disorder, managed with lamotrigine 200 mg daily, which was increased from 100 mg due to recurrence of severe headaches. 3. Severe Headaches The patient experiences severe stabbing headaches behind the right eye, managed with lamotrigine 200 mg daily. 4. Essential Hypertension The patient is on losartan 50 mg and metoprolol extended release 50 mg, which have effectively controlled his blood pressure. 5. Acid Reflux The patient is managed with omeprazole 20 mg for acid reflux symptoms. 6. Fungal Skin Infection The patient uses triamcinolone cream for a fungal skin infection, which has alleviated itching and dryness. 7. Preventative Care: Colonoscopy The patient underwent a colonoscopy in 2022 and is on a five-year follow-up plan. I discussed with the patient the management of his cardiac arrhythmias with metoprolol and the importance of maintaining blood pressure control. We reviewed his bipolar disorder management with lamotrigine and the adjustment of dosage due to headache recurrence. The patient was informed about the use of omeprazole for acid reflux and the application of triamcinolone cream for his skin condition. We also confirmed his colonoscopy follow-up schedule and the importance of regular preventative care. Medications: New syringe with needle, safety (Easy Touch [place]e Fliplock) for b12 injections once monthly 100 ea 3RF E53.8 - Deficiency of other specified B group vitamins Changed From cyanocobalamin (vitamin B-12) 1,000 mcg IM Q30D To cyanocobalamin (vitamin B-12) 1,000 mcg IM Q30D 3 mL 3RF 90 days Patient Instructions: - Continue taking all prescribed medications as directed. - Apply triamcinolone cream as needed for skin irritation. - Schedule follow-up appointments as discussed, including a six-month check-up. - Maintain regular preventative care, including colonoscopy follow-up in five years.
[2025-02-26 14:25] VITALS: BP 134/75; PULSE 56; RESP 14; TEMP 36.5; O2SAT 98; BMI 27.5
--- OUTSIDE RECORDS SUMMARY | 2025-02-26 18:03 | XMS_ITS | Clinical Summary ---
Author Organization [facility] Address [address] [place] [address] Care Team Providers Care Policy Director Name Role Phone Pcp, No Primary Care Provider Unavailabl e Allergies No known active allergies Medications buPROPion (WELLBUTRIN SR) 150 MG 12 hr tablet Take 150 mg by mouth 2 (two) times a day. Active OMEprazole (PriLOSEC) 20 MG capsule Take 20 mg by mouth every morning before breakfast. Active atorvastatin (LIPITOR) 20 MG tablet Take 20 mg by mouth daily. Active metoPROLOL TARTRATE (LOPRESSOR) 25 MG tablet Take 25 mg by mouth 2 (two) times a day. Active lamoTRIgine (LaMICtal) 100 MG tablet Take 100 mg by mouth 2 (two) times a day. Active Active Problems No known active problems Social History Tobacco Use Types Packs/Day Years Used Date Smoking Tobacco: Former Cigarettes Smokeless Tobacco: Never Alcohol Use Standard Drinks/Week Comments Yes 0 (1 standard drink = 0.6 oz pur e alcohol) occasional Sex and Gender Information Value Date Recorded Sex Assigned at Not on file Legal Sex Male 2:55 PM EDT Gender Identity Not on file Sexual Orientation Not on file Last Filed Vital Signs Vital Sign Reading Time Taken Comments Blood Pressure 146/91 01/21/2020 3:04 PM EDT Pulse 82 01/21/2020 3:04 PM EDT Temperature 36.7 C (98.1 F) 01/21/2020 3:04 PM EDT Respiratory Rate 16 01/21/2020 3:04 PM EDT Oxygen Saturation 99% 01/21/2020 3:04 PM EDT Inhaled Oxygen Concentration - - Weight 79.4 kg (175 lb) 01/21/2020 3:04 PM EDT Height 177.8 cm (5' 10 ) 01/21/2020 3:04 PM EDT Body Mass Index 25.11 01/21/2020 3:04 PM EDT Plan of Treatment Health Maintenance Due Date Last Done Comments Hepatitis C Virus Screening 1970 HIV Screening 10/20/1983 DTaP/Tdap/Td Vaccines (1 - Tdap) 1989 Hepatitis B Vaccines (1 of 3 - 19+ 3-dose series) 1989 Colonoscopy 10/20/2015 Pneumococcal Vaccines 50+ (1 of 1 - PCV) 2020 Zoster (Shingles) Vaccine (1 of 2) 2020 Influenza Vaccine 01/10/2025 COVID-19 Vaccine ( - 2024- season) 2025 04/06/2021, 10/05/2020, 09/07/2020 Insurance [employer] Care Teams Policy Director Relationship Specialty Start Date End Date Pcp, No PCP - General General Medicine 01/24/20
--- OUTSIDE RECORDS SUMMARY | 2025-02-26 18:04 | XMS_ITS | Patient Health Record ---
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 Name Role Phone Priyank (RETIRED) Lionel VOGT Primary Care Provider Unavailable Adalberto Vides Jr Unavailable Allergies No Known Allergies Reason For Referral No Information Medications Medication SIG (Take, Route, Frequency, Duration) Notes [...] capsule Orally Onc e a day Active Immunizations Vaccine Route Administration Date Status Comme nts Influenza Unknown 05/02/2022 Administered Social History Alcohol Screen Question Answer Notes Did you [...] daily (4 points) Points 12 Interpretation Positive Problems Problem Type SNOMED Code ICD Code Onset Dates Problem Status W/U Status Risk Notes Problem 150322522 Colon cancer screening (Z12.11) Active confirmed Problem 451657314 Gastroesophageal reflux disease without esophagitis (K21.9) Active confirmed Problem 722063717 Family history o f colon cancer (Z80.0) Active confirmed Plan Of Treatment Future Test Test Name Order Date COLONOSCOPY 08/27/2014 COLONOSCOPY 11/14/2022 Insurance Providers Payer Name Payer Address Payer Phone Subscriber Number Group Number Insured Name Patient Relationship to Insured Coverage Start Date Coverage End Date [facility] [address] [place] [address] [id number] NALINI MEJIA Self - patient is the insured Medical (General) History Medical History History ICD Code Left inguinal herniorrhaphy Colonoscopy 10/23/14, sessile serrated ad enoma and anal condyloma Gastroesophageal reflux disease Elevated cholesterol Anxiety Hypertension Surgical History Surgery Date(Month/Year) hand surgery nose surgery hernia surgery 10/01
== END 2025-02-26 15:02 | disposition home or self-care (01) ==
LOC: HO.HMCSH 14:18
PROVIDERS: PCP Internal Medicine; Visit Provider Physician Assistant Medical
DX: I49.9 Cardiac arrhythmia, unspecified (principal); F31.9 Bipolar disorder, unspecified; R51.9 Headache, unspecified; I10 Essential (primary) hypertension; K21.9 Gastro-esophageal reflux disease without esophagitis; B36.9 Superficial mycosis, unspecified; Z00.00 Encounter for general adult medical examination without abnormal findings

== ENCOUNTER → 2025-02-26 14:18 | Outpatient (BNVA) | payer OTHER, SELFPAY | PROVIDERS: PCP Internal Medicine; Visit Provider Physician Assistant Medical | DX: Z00.00 Encounter for general adult medical examination without abnormal findings (principal); I49.9 Cardiac arrhythmia, unspecified; F31.9 Bipolar disorder, unspecified; R51.9 Headache, unspecified; I10 Essential (primary) hypertension; K21.9 Gastro-esophageal reflux disease without esophagitis; B36.9 Superficial mycosis, unspecified; E53.8 Deficiency of other specified B group vitamins; Z79.899 Other long term (current) drug therapy | CPT/HCPCS: 96127 ==